=== PATIENT | female | born 2000 | race Caucasian/White ===

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

== ENCOUNTER → 2020-01-04 | Outpatient (CLI) | payer OTHER, MEDICAID ==
--- NOTE | 2020-01-04 13:30 | REP ---
INDICATION: HYPERTROPHY OF BREAST FILE ROOM. COMPARISON: Comparison chest x-ray June 28, 2005. TECHNIQUE: Two views.. FINDINGS: The lungs are well inflated and free of infiltrate. The pleural angles are sharp. The heart size is normal. Pulmonary vasculature is not increased. No significant bony abnormality is seen. There is a right-sided ventriculoperitoneal shunt catheter coursing into the right abdomen. IMPRESSION: Negative chest x-ray. Right [employer] shunt catheter noted. <Electronically signed by Shahriar Monae > 01/04/20 [id number]
== END ==
LOC: M RAD 10:19
PROVIDERS: ATTEND Plastic Surgery Surgery of the Hand
DX: N62 Hypertrophy of breast (principal)

== ENCOUNTER → 2020-03-07 | Outpatient (REF) | payer OTHER, MEDICAID | LOC: M SFHCWAGY 17:11 | PROVIDERS: ATTEND Nurse Practitioner Family | DX: Z11.3 Encounter for screening for infections with a predominantly sexual mode of transmission (principal) ==

== ENCOUNTER → 2020-04-06 | Outpatient (REF) | payer OTHER, MEDICAID ==
[2020-04-06 16:40] LABS: BASO % 0.9 % (0.0-1.0); EOS % 1.8 % (0.0-3.0); HEMATOCRIT 49.3 % (36.0-47.0); HEMOGLOBIN 16.6 g/dl (12.0-15.5); LYMPH % 30.6 % (24.0-44.0); MEAN CORPUSCULAR HEMOGLOBIN 30.1 pg (27.0-33.0); MEAN CORPUSCULAR HGB CONC 33.7 g/dl (32.0-36.5); MEAN CORPUSCULAR VOLUME 89.3 fl (80.0-96.0); MONO % 7.9 % (0.0-5.0); NEUTROPHILS % 58.8 % (36.0-66.0); PLATELET COUNT, AUTOMATED 262 10^3/uL (150-450); RED BLOOD COUNT 5.52 10^6/uL (4.00-5.40); WHITE BLOOD COUNT 5.6 10^3/uL (4.0-10.0)
[2020-04-06 16:41] LABS: BASO # 0.1 10^3/uL (0.0-0.2); EOS # 0.1 10^3/uL (0.0-0.5); LYMPH # 1.7 10^3/uL (1.5-5.0); MONO # 0.4 10^3/uL (0.0-0.8); NEUTROPHILS # 3.3 10^3/uL (1.5-8.5)
[2020-04-06 17:14] LABS: ALBUMIN 4.1 GM/DL (3.2-5.2); ALT/SGPT 19 U/L (12-78); BILIRUBIN,TOTAL 0.4 MG/DL (0.2-1.0); BLOOD UREA NITROGEN 13 MG/DL (7-18); CALCIUM LEVEL 9.2 MG/DL (8.5-10.1); CARBON DIOXIDE LEVEL 27 MEQ/L (21-32); CHLORIDE LEVEL 109 MEQ/L (98-107); CHOLESTEROL LEVEL 138 MG/DL (<200); CREATININE FOR GFR 1.03 MG/DL (0.55-1.30); GLUCOSE, FASTING 116 MG/DL (70-100); HDL CHOLESTEROL 40 MG/DL (>40); LDL CHOLESTEROL 74 MG/DL (<100); NON-HDL-C 98 MG/DL; POTASSIUM SERUM 3.8 MEQ/L (3.5-5.1); SODIUM LEVEL 142 MEQ/L (136-145); THYROID STIMULATING HORMONE 0.504 uIU/ML (0.463-3.98); TOTAL PROTEIN 7.3 GM/DL (6.4-8.2); TRIGLYCERIDES LEVEL 119 MG/DL (<150)
== END ==
LOC: M LAB REF 16:14
PROVIDERS: ATTEND Pediatrics
DX: Z79.890 Hormone replacement therapy (principal); Z51.81 Encounter for therapeutic drug level monitoring

== ENCOUNTER → 2020-04-30 | Outpatient (REF) | payer OTHER, MEDICAID ==
[2020-04-30 16:50] LABS: HEPATITIS A ANTIBODY IGM NEGATIVE (NEGATIVE); HEPATITIS B CORE ANTIBODY IGM NEGATIVE (NEGATIVE); HEPATITIS B SURFACE ANTIGEN NEGATIVE (NEGATIVE); HIV 1&2 SCREEN CENTAUR NEGATIVE (NEGATIVE)
== END ==
LOC: M PLALAB 13:40
PROVIDERS: ATTEND Nurse Practitioner Women's Health
DX: Z11.3 Encounter for screening for infections with a predominantly sexual mode of transmission (principal)

== ENCOUNTER → 2020-07-07 | Outpatient (CLI) | payer OTHER, MEDICAID | LOC: M LAB 12:41 | PROVIDERS: ATTEND Surgery | DX: F64.0 Transsexualism (principal); Z79.899 Other long term (current) drug therapy | CPT/HCPCS: 36415; G0480 ==

== ENCOUNTER → 2020-10-20 | Outpatient (CLI) | payer OTHER, MEDICAID | LOC: M LABSMTC 10:22 | PROVIDERS: ATTEND Nurse Practitioner | DX: Z01.812 Encounter for preprocedural laboratory examination (principal); Z11.52 Encounter for screening for COVID-19 ==

== ENCOUNTER → 2021-01-30 | Outpatient (REF) | payer OTHER, MEDICAID ==
[2021-01-30 14:41] LABS: GC DNA AMPLIFICATION NEGATIVE (NEGATIVE)
== END ==
LOC: M SFHCWAGY 12:47
PROVIDERS: ATTEND Advanced Practice Midwife
DX: Z20.2 Contact with and (suspected) exposure to infections with a predominantly sexual mode of transmission (principal)

== ENCOUNTER → 2021-12-25 | Outpatient (REF) | payer OTHER, MEDICAID ==
[~2021-12-25] MED LIST changes: +LAMO100T3; +LEXA1TAB2; +MELO15TA28 PO; +TEST200I14
[2021-12-25 15:35] LABS: GC DNA AMPLIFICATION NEGATIVE (NEGATIVE)
== END ==
LOC: M SFHCWAGY 13:02
PROVIDERS: ATTEND Advanced Practice Midwife
DX: Z11.3 Encounter for screening for infections with a predominantly sexual mode of transmission (principal); Z20.2 Contact with and (suspected) exposure to infections with a predominantly sexual mode of transmission

== ENCOUNTER → 2022-03-07 | Outpatient (REF) | payer OTHER, MEDICAID ==
[2022-03-07 17:06] LABS: BASO # 0.1 10^3/uL (0.0-0.2); BASO % 0.9 % (0.0-1.0); EOS # 0.2 10^3/uL (0.0-0.5); EOS % 3.4 % (0.0-3.0); HEMATOCRIT 47.4 % (42.0-52.0); HEMOGLOBIN 15.7 g/dl (13.5-17.5); LYMPH # 2.1 10^3/uL (1.5-5.0); LYMPH % 38.8 % (24.0-44.0); MEAN CORPUSCULAR HEMOGLOBIN 29.3 pg (27.0-33.0); MEAN CORPUSCULAR HGB CONC 33.1 g/dl (32.0-36.5); MEAN CORPUSCULAR VOLUME 88.6 fl (80.0-96.0); MONO # 0.4 10^3/uL (0.0-0.8); MONO % 7.6 % (2.0-8.0); NEUTROPHILS # 2.7 10^3/uL (1.5-8.5); NEUTROPHILS % 49.1 % (36.0-66.0); PLATELET COUNT, AUTOMATED 258 10^3/uL (150-450); RED BLOOD COUNT 5.35 10^6/uL (4.30-6.10); WHITE BLOOD COUNT 5.5 10^3/uL (4.0-10.0)
[2022-03-07 17:30] LABS: CHOLESTEROL RISK RATIO 2.66 (<5); HDL CHOLESTEROL 52.6 MG/DL (>40); LDL CHOLESTEROL 76.6 MG/DL (<100)
== END ==
LOC: M LAB REF 16:14
PROVIDERS: ATTEND Pediatrics
DX: F64.0 Transsexualism (principal)

== ENCOUNTER → 2023-03-30 | Outpatient (REF) | payer OTHER, MEDICAID | LOC: M SFHCWAGY 17:19 | PROVIDERS: ATTEND Nurse Practitioner Family | DX: R35.0 Frequency of micturition (principal) ==

== ENCOUNTER → 2023-09-15 | Outpatient (REF) | LOC: M EMP 08:18 | PROVIDERS: ATTEND Family Medicine | DX: Z11.52 Encounter for screening for COVID-19 (principal) ==

== ENCOUNTER → 2025-02-16 | Outpatient (CLI) | payer BC, MEDICAID ==
[2025-02-16 13:18] LABS: BASO # 0.1 10^3/uL (0.0-0.2); BASO % 1.0 % (0.0-1.0); EOS # 0.2 10^3/uL (0.0-0.5); EOS % 3.4 % (0.0-3.0); LYMPH # 2.6 10^3/uL (1.5-5.0); LYMPH % 43.8 % (24.0-44.0); MONO # 0.4 10^3/uL (0.0-0.8); MONO % 7.4 % (2.0-8.0); NEUTROPHILS # 2.6 10^3/uL (1.5-8.5); NEUTROPHILS % 44.2 % (36.0-66.0); PLATELET COUNT, AUTOMATED 300 10^3/uL (150-450)
[2025-02-16 13:57] LABS: ALT/SGPT 27 U/L (7.0-40); AST/SGOT 19 U/L (<34); CALCIUM LEVEL 9.1 MG/DL (8.5-10.1); CARBON DIOXIDE LEVEL 26 MMOL/L (20-31); CHLORIDE LEVEL 106 MMOL/L (98-107); CHOLESTEROL LEVEL 159 MG/DL (<200); CHOLESTEROL RISK RATIO 3.43 (<5); CREATININE FOR GFR 0.97 MG/DL (0.70-1.30); GLOMERULAR FILTRATION RATE > 90.0 (>60); LDL CHOLESTEROL 91.3 MG/DL (<100); NON-HDL-C 112.7 MG/DL; POTASSIUM SERUM 4.3 MMOL/L (3.5-5.1); SODIUM LEVEL 142 MMOL/L (136-145); TRIGLYCERIDES LEVEL 107 MG/DL (<150)
== END ==
LOC: M PLALAB 09:58
PROVIDERS: ATTEND Nurse Practitioner Family
DX: Z01.419 Encounter for gynecological examination (general) (routine) without abnormal findings (principal)